=== PATIENT | male | born 1995 | race Caucasian/White ===

== ENCOUNTER 2021-12-15 08:28 | Emergency (ER) | payer SELFPAY ==
[2021-12-15] MEDS ORDERED: Ondansetron 4 MG/2 ML SDV IVPUSH ONE (09:05)
[2021-12-15] MEDS ORDERED: Sodium Chloride 0.9% 1,000 ML IV ONE ×2 (09:05→11:11)
[2021-12-15] MEDS ORDERED: Sodium Chloride 0.9% 10 ML Syringe FLUSH PRN (09:05)
[2021-12-15] MEDS ORDERED: Sodium Chloride 0.9% 2.5 ML Syringe FLUSH PRN (09:05)
[2021-12-15] MEDS ORDERED: Ketorolac 30 MG/ML SDV IVPUSH ONE (09:09)
[2021-12-15 09:34] LABS: BLOOD UREA NITROGEN,BUN 18 mg/dL (7.0-18.0); CARBON DIOXIDE,CO2 21.8 mmol/L (21.0-32.0); CHLORIDE,CL 108 mmol/L (98-107); GLUCOSE RANDOM 108 mg/dL (74-106); LIPASE 43 U/L (73-393); POTASSIUM,K 3.9 mmol/L (3.5-5.1); SODIUM,NA 141 mmol/L (136-148)
[2021-12-15] MEDS ORDERED: Tamsulosin 0.4 MG Cap.ER PO ONE (11:11)
== END 2021-12-15 12:27 | disposition home or self-care (01) ==
LOC: MW.ED 08:28
DX: R10.83 Colic (principal); N13.30 Unspecified hydronephrosis; Z79.899 Other long term (current) drug therapy
CPT/HCPCS: 36415; 74176; 80053; 81001; 83690; 85025; 96374; 96375; 99284; A9270; J1885; J2405; J3490; J7030